=== PATIENT | male | born 1960 | race Caucasian/White ===

== ENCOUNTER → 2016-09-28 | Outpatient (CLI) | payer MEDICARE, MEDICAID ==
[~2016-09-28] MED LIST: AMMONIUM LACTA140 GM TOP; CLARITIN10 M3 PO; DILANTIN30 MG PO; FOLIC ACID1 MG PO; GLUCOPHAGE500 MG PO; LASIX20 MG PO; LEVAQUIN500 M1 PO; LOVAZA1 GM PO; PHENYTEK200 MG PO; PREDNISONE10 MG PO; TOPAMAX25 M1 PO; TRIAMCINOLONE A15 GM TOP; TYLENOL500 MG PO; VITAMIN B-121000 MC1 PO
== END | disposition short-term general hospital (02) ==
LOC: CLONCO 10:38
DX: D64.9 Anemia, unspecified (principal); D46.9 Myelodysplastic syndrome, unspecified

== ENCOUNTER → 2016-10-27 | Outpatient (CLI) | payer MEDICARE, MEDICAID | END | disposition short-term general hospital (02) | LOC: CLUROL 11:09 | DX: N35.9 Urethral stricture, unspecified (principal) ==

== ENCOUNTER 2016-11-04 20:58 | Emergency (ER) | payer MEDICARE, MEDICAID ==
[~2016-11-04] VITALS: Ht 170.2 cm; Wt 93.4 kg
== END 2016-11-05 01:02 | disposition short-term general hospital (02) ==
LOC: ER 20:58
DX: R50.9 Fever, unspecified (principal); R05 Cough; G40.909 Epilepsy, unspecified, not intractable, without status epilepticus; F32.9 Major depressive disorder, single episode, unspecified; D64.9 Anemia, unspecified; I35.8 Other nonrheumatic aortic valve disorders; Z87.440 Personal history of urinary (tract) infections

== ENCOUNTER → 2016-11-23 | Outpatient (CLI) | payer MEDICARE, MEDICAID | END | disposition short-term general hospital (02) | LOC: CLONCO 09:58 | DX: D46.9 Myelodysplastic syndrome, unspecified (principal); D64.9 Anemia, unspecified ==

== ENCOUNTER → 2016-12-15 | Outpatient (CLI) | payer MEDICARE, MEDICAID | END | disposition short-term general hospital (02) | LOC: CLONCO 13:54 | DX: D46.9 Myelodysplastic syndrome, unspecified (principal); D64.9 Anemia, unspecified ==

== ENCOUNTER → 2016-12-15 | Outpatient (CLI) | payer MEDICARE, MEDICAID | END | disposition short-term general hospital (02) | LOC: CLUROL 13:06 | DX: N35.9 Urethral stricture, unspecified (principal) ==

== ENCOUNTER → 2017-02-23 | Outpatient (CLI) | payer MEDICARE, MEDICAID | END | disposition short-term general hospital (02) | LOC: CLUROL 12:31 | DX: N35.9 Urethral stricture, unspecified (principal) ==